=== PATIENT | female | born 1960 | race Asian ===

== ENCOUNTER 2018-11-05 13:09 | Emergency (ER) | payer BC, OTHER ==
[~2018-11-05] VITALS: Ht 160 cm; Wt 52.0 kg
[2018-11-05] MEDS ORDERED: IBUPROFEN 600MG TABLET PO STA (15:07)
[2018-11-05] MEDS ORDERED: TETANUS, DIPHTHERIA, PERTUSSIS VAC/PF 0.5ML (>7YR OLD) IM ONE (15:15)
[2018-11-05] MEDS ORDERED: BACITRACIN ZINC OINT UDPKT TOP ONE (15:15)
[2018-11-05 15:28] VITALS: BP 134/86
[2018-11-05] MEDS ORDERED: BACITRACIN 15GM TUBE TOP NR (15:30)
== END 2018-11-05 16:39 | disposition home or self-care (01) ==
LOC: ER 15:00
DX: S00.83XA Contusion of other part of head, initial encounter (principal); S00.31XA Abrasion of nose, initial encounter; W01.0XXA Fall on same level from slipping, tripping and stumbling without subsequent striking against object, initial encounter; Y93.89 Activity, other specified; Y92.018 Other place in single-family (private) house as the place of occurrence of the external cause
CPT/HCPCS: 90471; 90715; 99284